=== PATIENT | male | born 1935 ===

== ENCOUNTER 2021-06-04 16:25 | Inpatient (IN) | payer MEDICARE, OTHER ==
--- NOTE | 2021-06-05 07:45 | History and Physical Report ---
GP History & Physical - History of Present Illness Date of admission: 06/05/21 Date of Examination: 06/05/21 Chief Complaint: Suicidal/homicidal ideation/ command hallucinations. History of Present Illness: The patient is an 86 year old male with history of Dementia who was admitted from [facility] on 1012 for suicidal and homicidal ideation. The patient is seen this morning, he is calm, confused and unable to participate in the assessm ent process. When asking the the patient why he was admitted , he states " I thought I'm coming here to get a test for my stomach and go back home." PAST PSYCHIATRIC HISTORY: Unable to obtain PAST MEDICAL HISTORY: None reported or document Family Psychiatric History: None reported or documented SOCIAL HISTORY Unable to obtain REVIEW OF SYSTEMS Unable to obtain MENTAL STATUS EXAMINATION Unable to obtain Assessment and Plan (1) Dementia w/Behavioral Disturbances Treatment Plan Patient admitted for inpatient psychiatric evaluation, medication adjustment and close monitoring The patient's behavior, mood, sleep and appetite will be closely monitored. Patient enrolled in individual and group therapeutic sessions and encouraged to attend. Patient provided with a safe and structured environment. Patient's physical health needs will be addressed by the Hospitalist. Hospitalist Consulted Labs including CBC, CMP, Lipid profile and Hemoglobin A1C levels ordered for baseline reference Social Assessment will be completed and the Treasury Specialist will work with patient and family to ensure a suitable and safe disposition Medication adjustment will be made as clinically indicated Restarted home medications Usual Wellness Yarsanism/Preservation: - Start Trazodone 50 mg po QHS & 50 mg po QHS PRN between 10 PM & 2 AM for insomnia - Start Melatonin 5 mg po QHS to promote circadian rhythm The patient agreed on the treatment plan, understood the risk, benefit, alternative treatment, potential consequence of no treatment, and gave informed consent. Estimated days: 7 Post hospital care: primary care provider, psychiatric provider Case staffed with Dr. Ruiz Legal Status: Voluntary Reaction to Hospitalization: Accepting Medications and Allergies Results - Results Labs/Vitals: Laboratory Last Values POC Glucose 133 mg/dL (70-105) H 06/05/21 07:11 Last Vital Signs Temp 97.5 F L 06/05/21 03:07 Pulse 77 06/05/21 03:07 Resp 17 06/05/21 03:07 BP 186/66 06/05/21 03:07 Pulse Ox 95 06/05/21 03:07 Physical Examination - Constitutional Vitals: Vital Signs Temp Pulse Resp BP Pulse Ox 97.5 F L 77 17 186/66 95 06/05/21 03:07 06/05/21 03:07 06/05/21 03:07 06/05/21 03:07 06/05/21 03:07 Temperature -Last 24 Hours Temperature 97.5 F Mental Status Exam - Vital signs Last Vital Signs Temp 97.5 F L 06/05/21 03:07 Pulse 77 06/05/21 03:07 Resp 17 06/05/21 03:07 BP 186/66 06/05/21 03:07 Pulse Ox 95 06/05/21 03:07 Physician Certification - Certification Statement Physician Certification Statement: This is an acknowledgement statement that GLORY MARTIN is a 86 year old M who requires inpatient psychiatric admission for treatment which could reasonably be expected to improve the patient's condition for Estimated period of time patient will need to remain in the hospital: [ ] Plan for post-hospital care: [ ]
[2021-06-05 08:48] LABS: Basophils % (Auto) 0.4 % (0.0-1.8); Eosinophils # (Auto) 0.1 K/mm3 (0.0-0.4); Hematocrit 39.4 % (35.5-45.6); Hemoglobin 12.2 gm/dl (11.8-15.2); Lymphocytes # (Auto) 0.5 K/mm3 (1.2-5.4); Lymphocytes % (Auto) 7.3 % (13.4-35.0); Mean Corpuscular HGB Conc 31 % (32-34); Mean Corpuscular Volume 87 fl (84-94); Monocytes # (Auto) 0.6 K/mm3 (0.0-0.8); Monocytes % (Auto) 9.1 % (0.0-7.3); Platelet Count 205 K/mm3 (140-440); Red Blood Count 4.52 M/mm3 (3.65-5.03); Red Cell Distribution Width 14.7 % (13.2-15.2)
[2021-06-05 09:16] LABS: Albumin 3.3 g/dL (3.9-5); Calcium 9.1 mg/dL (8.4-10.2); Chol/HDL Ratio 2.18 %
[2021-06-05 13:32] LABS: Hepatitis C Virus Antibody Non-Reactive (NonReactive)
[2021-06-05 14:26] LABS: Hepatitis B Surface Antigen Nonreactive (Negative)
--- NOTE | 2021-06-05 20:56 | Consultation ---
History of Present Illness - Reason for Consult Consult date: 06/05/21 Medical management Requesting physician: JACQUE CUBA - History of Present Illness The patient is an 86 year old male with history of Dementia who was admitted from [facility] on 1012 for suicidal and homicidal ideation. The patient is seen this morning, he is calm, confused and unable to participate in the assessment process. When asking the the patient why he was admitted , he states " I thought I'm coming here to get a test for my stomach and go back home." PAST PSYCHIATRIC HISTORY: Unable to obtain PAST MEDICAL HISTORY: T2DM Family Psychiatric History: None reported or documented SOCIAL HISTORY Unable to obtain REVIEW OF SYSTEMS Unable to obtain MENTAL STATUS EXAMINATION Unable to obtain Medications and Allergies Allergies Allergy/AdvReac Type Severity Reaction Status Date / Time No Known Allergies Allergy Verified 06/05/21 16:47 Exam - Constitutional Vitals: Temp Pulse Resp BP Pulse Ox 97.5 F L 77 17 186/66 95 06/05/21 03:07 06/05/21 03:07 06/05/21 03:07 06/05/21 03:07 06/05/21 03:07 General appearance: Present: no acute distress, well-nourished - EENT Eyes: Present: PERRL ENT: hearing intact, clear oral mucosa - Neck Neck: Present: supple, normal ROM - Respiratory Respiratory effort: normal Respiratory: bilateral: CTA - Cardiovascular Heart rate: 70 Rhythm: regular Heart Sounds: Present: S1 & S2. Absent: rub, click - Extremities Extremities: pulses symmetrical, No edema Peripheral Pulses: within normal limits - Abdominal General gastrointestinal: Present: soft, non-tender, non-distended, normal bowel sounds Male genitourinary: Present: normal - Integumentary Integumentary: Present: clear, warm, dry - Musculoskeletal Musculoskeletal: gait normal, strength equal bilaterally - Psychiatric Psychiatric: appropriate mood/affect, intact judgment & insight - Neurologic Neurologic: CNII-XII intact, moves all extremities - Allied Health Allied health notes reviewed: nursing, case management Results - Labs CBC & Chem 7: 06/05/21 08:31 06/05/21 08:31 Labs: Abnormal lab results 06/05/21 06/05/21 06/05/21 Range/Units 06:28 07:11 08:31 MCH 27 L (28-32) pg MCHC 31 L (32-34) % Lymph % (Auto) 7.3 L (13.4-35.0) % [place]y % (Auto) 9.1 H (0.0-7.3) % Lymph # (Auto) 0.5 L (1.2-5.4) K/mm3 Seg Neutrophils % 82.2 H (40.0-70.0) % Glucose (75-100) mg/dL POC Glucose 67 L 133 H (70-105) mg/dL Albumin (3.9-5) g/dL LDL Cholesterol Direct (50-130) mg/dL 06/05/21 06/05/21 Range/Units 08:31 11:46 MCH (28-32) pg MCHC (32-34) % Lymph % (Auto) (13.4-35.0) % [place]y % (Auto) (0.0-7.3) % Lymph # (Auto) (1.2-5.4) K/mm3 Seg Neutrophils % (40.0-70.0) % Glucose 154 H (75-100) mg/dL POC Glucose 115 H (70-105) mg/dL Albumin 3.3 L (3.9-5) g/dL LDL Cholesterol Direct 32 L (50-130) mg/dL Short CBC 06/05/21 Range/Units 08:31 WBC 6.8 (4.5-11.0) K/mm3 Hgb 12.2 (11.8-15.2) gm/dl Hct 39.4 (35.5-45.6) % Plt Count 205 (140-440) K/mm3 BMP 06/05/21 08:31 Sodium 142 Potassium 3.7 Chloride 100.7 Carbon Dioxide 27 BUN 16 Creatinine 1.2 Glucose 154 H Calcium 9.1 Liver Function 06/05/21 Range/Units 08:31 Total Bilirubin 0.70 (0.1-1.2) mg/dL AST 17 (5-40) units/L ALT 11 (7-56) units/L Alkaline Phosphatase 55 (35-129) units/L Albumin 3.3 L (3.9-5) g/dL Assessment and Plan - Patient Problems (1) T2DM (type 2 diabetes mellitus) Current Visit: Yes Status: Acute Plan to address problem: [place] Ac/HS Check A1c (2) DVT prophylaxis Current Visit: Yes Status: Acute Plan to address problem: On heparin and GI prophylaxis
[2021-06-05] MEDS: INSULIN LISPRO 100 UNIT/ML SUB-Q SCH (22:18)
--- NOTE | 2021-06-06 07:47 | Progress Note ---
Subjective Date of service: 06/06/21 Subjective Comment: 06/06/21: The patient was seen in the activity room today, he reports not doing well " I got stomach pain." He continues to be confused, endorsing auditory hallucination but not sure what the voices are saying. He denies any current suicidal/homicidal ideation. PAST PSYCHIATRIC HISTORY: Unable to obtain PAST MEDICAL HISTORY: None reported or document Family Psychiatric History: None reported or documented SOCIAL HISTORY Unable to obtain REVIEW OF SYSTEMS Unable to obtain MENTAL STATUS EXAMINATION Unable to obtain Assessment and Plan (1) Dementia w/Behavioral Disturbances Treatment Plan Patient admitted for inpatient psychiatric evaluation, medication adjustment and close monitoring The patient's behavior, mood, sleep and appetite will be closely monitored. Patient enrolled in individual and group therapeutic sessions and encouraged to attend. Patient provided with a safe and structured environment. Patient's physical health needs will be addressed by the Hospitalist. Hospitalist Consulted Labs including CBC, CMP, Lipid profile and Hemoglobin A1C levels ordered for baseline reference Social Assessment will be completed and the Hydraulic Repairer will work with patient and family to ensure a suitable and safe disposition Medication adjustment will be made as clinically indicated Restarted home medications Usual Wellness Episcopal/Preservation: - Start Trazodone 50 mg po QHS & 50 mg po QHS PRN between 10 PM & 2 AM for insomnia - Start Melatonin 5 mg po QHS to promote circadian rhythm The patient agreed on the treatment plan, understood the risk, benefit, alternative treatment, potential consequence of no treatment, and gave informed consent. Estimated days: 6 Post hospital care: primary care provider, psychiatric provider Case staffed with Dr. Ruiz Legal Status: Voluntary Reaction to Hospitalization: Accepting Medications and Allergies Results Medications and Allergies Allergies Allergy/AdvReac Type Severity Reaction Status Date / Time No Known Allergies Allergy Verified 06/05/21 16:47 Home Medications Medication Instructions Recorded Confirmed Last Taken Type Acetaminophen [Aphen] 325 mg PO Q6HR 06/06/21 06/06/21 Unknown History Aspirin 325 mg PO QDAY 06/06/21 06/06/21 Unknown History Benzonatate [Tessalon Perles] 100 mg PO Q8HR 06/06/21 06/06/21 Unknown History HYDROcodone/APAP 5-325 [[place] 1 each PO Q6HR PRN 06/06/21 06/06/21 Unknown History 5/325] Ipratropium 2.5 mg PO Q6HR 06/06/21 06/06/21 Unknown History Lovastatin [Altoprev] 40 mg PO HS 06/06/21 06/06/21 Unknown History Metoprolol [Lopressor TAB] 50 mg PO BID 06/06/21 06/06/21 Unknown History Mometasone 0.1% (Nf) [Elocon (Nf)] 1 applicatio TP QDAY 06/06/21 06/06/21 Unknown History NIFEdipine [Nifedipine ER] 60 mg PO BID 06/06/21 06/06/21 Unknown History Tylenol Cold-Flu Mult D-N Cplt 1 mg PO TID 06/06/21 06/06/21 Unknown History glipiZIDE [Glucotrol] 5 mg PO BID 06/06/21 06/06/21 Unknown History hydrALAZINE [Apresoline TAB] 100 mg PO TID 06/06/21 06/06/21 Unknown History Active Meds: Active Medications Insulin Human Lispro (Insulin Lispro 100 Unit/Ml) 0 unit SUB-Q [facility]; Protocol Last Admin: 06/05/21 22:18 Dose: Not Given Documented by: Metformin HCl (Metformin Xr 500mg Tab) 500 mg PO QDDIAB JOSTIN Results - Results Labs/Vitals: Laboratory Last Values WBC 6.8 K/mm3 (4.5-11.0) 06/05/21 08:31 RBC 4.52 M/mm3 (3.65-5.03) 06/05/21 08:31 Hgb 12.2 gm/dl (11.8-15.2) 06/05/21 08:31 Hct 39.4 % (35.5-45.6) 06/05/21 08:31 MCV 87 fl (84-94) 06/05/21 08:31 MCH 27 pg (28-32) L 06/05/21 08:31 MCHC 31 % (32-34) L 06/05/21 08:31 RDW 14.7 % (13.2-15.2) 06/05/21 08:31 Plt Count 205 K/mm3 (140-440) 06/05/21 08:31 Lymph % (Auto) 7.3 % (13.4-35.0) L 06/05/21 08:31 Desha % (Auto) 9.1 % (0.0-7.3) H 06/05/21 08:31 Eos % (Auto) 1.0 % (0.0-4.3) 06/05/21 08:31 Baso % (Auto) 0.4 % (0.0-1.8) 06/05/21 08:31 Lymph # (Auto) 0.5 K/mm3 (1.2-5.4) L 06/05/21 08:31 Desha # (Auto) 0.6 K/mm3 (0.0-0.8) 06/05/21 08:31 Eos # (Auto) 0.1 K/mm3 (0.0-0.4) 06/05/21 08:31 Baso # (Auto) 0.0 K/mm3 (0.0-0.1) 06/05/21 08:31 Seg Neutrophils % 82.2 % (40.0-70.0) H 06/05/21 08:31 Seg Neutrophils # 5.6 K/mm3 (1.8-7.7) 06/05/21 08:31 Sodium 142 mmol/L (137-145) 06/05/21 08:31 Potassium 3.7 mmol/L (3.6-5.0) 06/05/21 08:31 Chloride 100.7 mmol/L (98-107) 06/05/21 08:31 Carbon Dioxide 27 mmol/L (22-30) 06/05/21 08:31 Anion Gap 18 mmol/L 06/05/21 08:31 BUN 16 mg/dL (9-20) 06/05/21 08:31 Creatinine 1.2 mg/dL (0.8-1.3) 06/05/21 08:31 Estimated GFR 57 ml/min 06/05/21 08:31 BUN/Creatinine Ratio 13 % 06/05/21 08:31 Glucose 154 mg/dL (75-100) H 06/05/21 08:31 POC Glucose 88 mg/dL (70-105) 06/06/21 05:44 Hemoglobin A1c 5.9 % (4-6) 06/05/21 08:31 Calcium 9.1 mg/dL (8.4-10.2) 06/05/21 08:31 Total Bilirubin 0.70 mg/dL (0.1-1.2) 06/05/21 08:31 AST 17 units/L (5-40) 06/05/21 08:31 ALT 11 units/L (7-56) 06/05/21 08:31 Alkaline Phosphatase 55 units/L (35-129) 06/05/21 08:31 Total Protein 6.9 g/dL (6.3-8.2) 06/05/21 08:31 Albumin 3.3 g/dL (3.9-5) L 06/05/21 08:31 Albumin/Globulin Ratio 0.9 % 06/05/21 08:31 Triglycerides 72 mg/dL (2-149) 06/05/21 08:31 Cholesterol 96 mg/dL (50-199) 06/05/21 08:31 LDL Cholesterol Direct 32 mg/dL (50-130) L 06/05/21 08:31 HDL Cholesterol 44 mg/dL (40-59) 06/05/21 08:31 Cholesterol/HDL Ratio 2.18 % 06/05/21 08:31 TSH 2.960 mlU/mL (0.270-4.200) 06/05/21 08:31 Hepatitis A IgM Ab Non-reactive (NonReactive) 06/05/21 08:31 Hep Bs Antigen Nonreactive (Negative) 06/05/21 08:31 Hep B Core IgM Ab Non-reactive (NonReactive) 06/05/21 08:31 Hepatitis C Antibody Non-reactive (NonReactive) 06/05/21 08:31 Last Vital Signs Temp 97.5 F L 06/05/21 20:00 Pulse 72 06/05/21 20:00 Resp 18 06/05/21 20:00 BP 173/89 06/05/21 20:00 Pulse Ox 98 06/05/21 20:00
[2021-06-06] MEDS ORDERED: metFORMIN XR 500MG TAB PO SCH (08:00)
[2021-06-06] MEDS: INSULIN LISPRO 100 UNIT/ML SUB-Q SCH ×4 (09:06→21:38)
[2021-06-06] MEDS ORDERED: LOSARTAN 25 MG TAB PO ONE (10:59)
[2021-06-06] MEDS ORDERED: NIFEdipine XL 30 MG TAB PO ONE (10:59)
[2021-06-06] MEDS ORDERED: LOSARTAN 25 MG TAB PO SCH (11:00)
[2021-06-06] MEDS ORDERED: NIFEdipine XL 30 MG TAB PO SCH (11:00)
--- NOTE | 2021-06-06 13:52 | Progress Note ---
Assessment and Plan - Patient Problems (1) T2DM (type 2 diabetes mellitus) Current Visit: Yes Status: Acute Plan to address problem: [place] Ac/HS Check A1c (2) HTN (hypertension) Current Visit: Yes Status: Chronic (3) DVT prophylaxis Current Visit: Yes Status: Acute Plan to address problem: On heparin and GI prophylaxis Subjective Date of service: 06/06/21 Objective - Constitutional Vitals: Vital Signs - 12hr 06/06/21 08:03 Temperature 98.7 F Respiratory 20 Rate Blood Pressure 200/89 General appearance: Present: no acute distress, well-nourished - EENT Eyes: PERRL, EOM intact ENT: hearing intact, clear oral mucosa Ears: bilateral: normal - Neck Neck: supple, normal ROM - Respiratory Respiratory effort: normal Respiratory: bilateral: CTA - Breasts Breasts: normal - Cardiovascular Rhythm: regular Heart Sounds: Present: S1 & S2. Absent: gallop, rub Extremities: pulses intact, No edema, normal color, Full ROM - Gastrointestinal General gastrointestinal: Present: soft, non-tender, non-distended, normal bowel sounds - Genitourinary Male genitourinary: normal - Integumentary Integumentary: clear, warm, dry - Musculoskeletal Musculoskeletal: 1, strength equal bilaterally - Neurologic Neurologic: moves all extremities - Psychiatric Psychiatric: memory intact, appropriate mood/affect, intact judgment & insight - Labs CBC & Chem 7: 06/05/21 08:31 06/05/21 08:31 Labs: Abnormal lab results 06/06/21 Range/Units 11:45 POC Glucose 123 H (70-105) mg/dL
[2021-06-06] MEDS ORDERED: ACETAMINOPHEN 325 MG TAB PO PRN (21:30)
[2021-06-06] MEDS: NIFEdipine XL 60 MG TAB PO SCH (21:37)
[2021-06-06] MEDS: METOPROLOL TARTRATE 50 MG TAB PO SCH (21:37)
[2021-06-06] MEDS: glipiZIDE 5 MG TAB PO SCH (21:40)
[2021-06-07] MEDS: POLYETHYLENE GLYCOL 3350 17 GM POWDER PO SCH ×3 (01:11→22:34)
[2021-06-07] MEDS ORDERED: oxyCODONE /ACETAMINOPHEN 5-325MG TAB PO ONE (01:35)
[2021-06-07] MEDS: INSULIN LISPRO 100 UNIT/ML SUB-Q SCH ×4 (08:04→22:37)
--- NOTE | 2021-06-07 09:05 | Progress Note ---
Subjective Date of service: 06/07/21 Subjective Comment: 06/06/21: The patient was seen in the activity room today, he reports not doing well " I got stomach pain." He continues to be confused, endorsing auditory hallucination but not sure what the voices are saying. He denies any current suicidal/homicidal ideation. 06/07/21: The patient is seen in the room, states he is doing "pretty good today." States sleep is poor, and feeling a little depressed. He continues to endorse intermittent suicidal ideation and auditory hallucinations " seeing snakes." PAST PSYCHIATRIC HISTORY: Unable to obtain PAST MEDICAL HISTORY: None reported or document Family Psychiatric History: None reported or documented SOCIAL HISTORY Unable to obtain REVIEW OF SYSTEMS Unable to obtain MENTAL STATUS EXAMINATION Unable to obtain Assessment and Plan (1) Dementia w/Behavioral Disturbances Treatment Plan Patient admitted for inpatient psychiatric evaluation, medication adjustment and close monitoring The patient's behavior, mood, sleep and appetite will be closely monitored. Patient enrolled in individual and group therapeutic sessions and encouraged to attend. Patient provided with a safe and structured environment. Patient's physical health needs will be addressed by the Hospitalist. Hospitalist Consulted Labs including CBC, CMP, Lipid profile and Hemoglobin A1C levels ordered for baseline reference Social Assessment will be completed and the Game Operator will work with patient and family to ensure a suitable and safe disposition Medication adjustment will be made as clinically indicated Restarted home medications Start Effexor 37.5mg po daily Start Depakote DR 125mg po BID Start Zyprexa 5mg po QHS Usual Wellness Orthodox/Preservation: - Start Trazodone 50 mg po QHS & 50 mg po QHS PRN between 10 PM & 2 AM for insomnia - Start Melatonin 5 mg po QHS to promote circadian rhythm The patient agreed on the treatment plan, understood the risk, benefit, alternative treatment, potential consequence of no treatment, and gave informed consent. Estimated days: 5 Post hospital care: primary care provider, psychiatric provider Case staffed with Dr. Ruiz Legal Status: Voluntary Reaction to Hospitalization: Accepting Medications and Allergies Results Medications and Allergies Medications and Allergies Allergies Allergy/AdvReac Type Severity Reaction Status Date / Time No Known Allergies Allergy Verified 06/05/21 16:47 Home Medications Medication Instructions Recorded Confirmed Last Taken Type Acetaminophen [Aphen] 325 mg PO Q6HR 06/06/21 06/06/21 Unknown History Aspirin 325 mg PO QDAY 06/06/21 06/06/21 Unknown History Benzonatate [Tessalon Perles] 100 mg PO Q8HR 06/06/21 06/06/21 Unknown History HYDROcodone/APAP 5-325 [[place] 1 each PO Q6HR PRN 06/06/21 06/06/21 Unknown History 5/325] Ipratropium 2.5 mg PO Q6HR 06/06/21 06/06/21 Unknown History Lovastatin [Altoprev] 40 mg PO HS 06/06/21 06/06/21 Unknown History Metoprolol [Lopressor TAB] 50 mg PO BID 06/06/21 06/06/21 Unknown History Mometasone 0.1% (Nf) [Elocon (Nf)] 1 applicatio TP QDAY 06/06/21 06/06/21 Unknown History NIFEdipine [Nifedipine ER] 60 mg PO BID 06/06/21 06/06/21 Unknown History Tylenol Cold-Flu Mult D-N Cplt 1 mg PO TID 06/06/21 06/06/21 Unknown History glipiZIDE [Glucotrol] 5 mg PO BID 06/06/21 06/06/21 Unknown History hydrALAZINE [Apresoline TAB] 100 mg PO TID 06/06/21 06/06/21 Unknown History polyethylene glycoL 3350 [Miralax 17 gm PO BID 06/07/21 06/07/21 Unknown History 3350] Active Meds: Active Medications Acetaminophen (Acetaminophen 325 Mg Tab) 325 mg PO Q6H PRN PRN Reason: Pain, Mild (1-3) Last Admin: 06/06/21 21:37 Dose: 325 mg Documented by: Glipizide (Glipizide 5 Mg Tab) 5 mg PO BID REPLACED BY [facility] Last Admin: 06/06/21 21:40 Dose: Not Given Documented by: Hydralazine HCl (Hydralazine 100 Mg Tab) 100 mg PO TID REPLACED BY [facility] Insulin Human Lispro (Insulin Lispro 100 Unit/Ml) 0 unit SUB-Q ACHS REPLACED BY [facility]; Protocol Last Admin: 06/07/21 08:04 Dose: Not Given Documented by: Metoprolol Tartrate (Metoprolol Tartrate 50 Mg Tab) 50 mg PO BID REPLACED BY [facility] Last Admin: 06/06/21 21:37 Dose: 50 mg Documented by: Nifedipine (Nifedipine Xl 60 Mg Tab) 60 mg PO BID REPLACED BY [facility] Last Admin: 06/06/21 21:37 Dose: 60 mg Documented by: Polyethylene Glycol (Polyethylene Glycol 3350 17 Gm Powder) 17 gm PO BID REPLACED BY [facility] Last Admin: 06/07/21 01:11 Dose: 17 gm Documented by: Results - Results Labs/Vitals: Laboratory Last Values WBC 6.8 K/mm3 (4.5-11.0) 06/05/21 08:31 RBC 4.52 M/mm3 (3.65-5.03) 06/05/21 08:31 Hgb 12.2 gm/dl (11.8-15.2) 06/05/21 08:31 Hct 39.4 % (35.5-45.6) 06/05/21 08:31 MCV 87 fl (84-94) 06/05/21 08:31 MCH 27 pg (28-32) L 06/05/21 08:31 MCHC 31 % (32-34) L 06/05/21 08:31 RDW 14.7 % (13.2-15.2) 06/05/21 08:31 Plt Count 205 K/mm3 (140-440) 06/05/21 08:31 Lymph % (Auto) 7.3 % (13.4-35.0) L 06/05/21 08:31 [place] % (Auto) 9.1 % (0.0-7.3) H 06/05/21 08:31 Eos % (Auto) 1.0 % (0.0-4.3) 06/05/21 08:31 Baso % (Auto) 0.4 % (0.0-1.8) 06/05/21 08:31 Lymph # (Auto) 0.5 K/mm3 (1.2-5.4) L 06/05/21 08:31 [place] # (Auto) 0.6 K/mm3 (0.0-0.8) 06/05/21 08:31 Eos # (Auto) 0.1 K/mm3 (0.0-0.4) 06/05/21 08:31 Baso # (Auto) 0.0 K/mm3 (0.0-0.1) 06/05/21 08:31 Seg Neutrophils % 82.2 % (40.0-70.0) H 06/05/21 08:31 Seg Neutrophils # 5.6 K/mm3 (1.8-7.7) 06/05/21 08:31 Sodium 142 mmol/L (137-145) 06/05/21 08:31 Potassium 3.7 mmol/L (3.6-5.0) 06/05/21 08:31 Chloride 100.7 mmol/L (98-107) 06/05/21 08:31 Carbon Dioxide 27 mmol/L (22-30) 06/05/21 08:31 Anion Gap 18 mmol/L 06/05/21 08:31 BUN 16 mg/dL (9-20) 06/05/21 08:31 Creatinine 1.2 mg/dL (0.8-1.3) 06/05/21 08:31 Estimated GFR 57 ml/min 06/05/21 08:31 BUN/Creatinine Ratio 13 % 06/05/21 08:31 Glucose 154 mg/dL (75-100) H 06/05/21 08:31 POC Glucose 132 mg/dL (70-105) H 06/07/21 06:11 Hemoglobin A1c 5.9 % (4-6) 06/05/21 08:31 Calcium 9.1 mg/dL (8.4-10.2) 06/05/21 08:31 Total Bilirubin 0.70 mg/dL (0.1-1.2) 06/05/21 08:31 AST 17 units/L (5-40) 06/05/21 08:31 ALT 11 units/L (7-56) 06/05/21 08:31 Alkaline Phosphatase 55 units/L (35-129) 06/05/21 08:31 Total Protein 6.9 g/dL (6.3-8.2) 06/05/21 08:31 Albumin 3.3 g/dL (3.9-5) L 06/05/21 08:31 Albumin/Globulin Ratio 0.9 % 06/05/21 08:31 Triglycerides 72 mg/dL (2-149) 06/05/21 08:31 Cholesterol 96 mg/dL (50-199) 06/05/21 08:31 LDL Cholesterol Direct 32 mg/dL (50-130) L 06/05/21 08:31 HDL Cholesterol 44 mg/dL (40-59) 06/05/21 08:31 Cholesterol/HDL Ratio 2.18 % 06/05/21 08:31 TSH 2.960 mlU/mL (0.270-4.200) 06/05/21 08:31 Hepatitis A IgM Ab Non-reactive (NonReactive) 06/05/21 08:31 Hep Bs Antigen Nonreactive (Negative) 06/05/21 08:31 Hep B Core IgM Ab Non-reactive (NonReactive) 06/05/21 08:31 Hepatitis C Antibody Non-reactive (NonReactive) 06/05/21 08:31 Last Vital Signs Temp 98.6 F 06/06/21 20:04 Pulse 65 06/06/21 21:37 Resp 18 06/07/21 01:29 BP 161/85 06/06/21 21:37 Pulse Ox 100 06/06/21 20:04
[2021-06-07] MEDS: glipiZIDE 5 MG TAB PO SCH ×2 (09:59→22:32)
[2021-06-07] MEDS: VENLAFAXINE 37.5 MG TAB PO SCH (09:59)
[2021-06-07] MEDS: hydrALAZINE 100 MG TAB PO SCH ×3 (09:59→22:31)
[2021-06-07] MEDS: NIFEdipine XL 60 MG TAB PO SCH ×2 (09:59→22:34)
[2021-06-07] MEDS: METOPROLOL TARTRATE 50 MG TAB PO SCH ×2 (09:59→22:33)
[2021-06-07] MEDS: DIVALPROEX DR 125 MG TAB PO SCH ×2 (09:59→22:31)
[2021-06-08] MEDS: INSULIN LISPRO 100 UNIT/ML SUB-Q SCH ×4 (07:35→21:44)
[2021-06-08] MEDS: hydrALAZINE 100 MG TAB PO SCH ×3 (09:55→20:50)
[2021-06-08] MEDS: POLYETHYLENE GLYCOL 3350 17 GM POWDER PO SCH ×2 (09:55→21:37)
[2021-06-08] MEDS: VENLAFAXINE 37.5 MG TAB PO SCH (09:55)
[2021-06-08] MEDS: NIFEdipine XL 60 MG TAB PO SCH ×2 (09:55→21:38)
[2021-06-08] MEDS: glipiZIDE 5 MG TAB PO SCH ×2 (09:55→21:44)
[2021-06-08] MEDS: DIVALPROEX DR 125 MG TAB PO SCH ×2 (09:55→21:49)
[2021-06-08] MEDS: METOPROLOL TARTRATE 50 MG TAB PO SCH ×2 (09:56→21:45)
--- NOTE | 2021-06-08 11:26 | Discharge Summary ---
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 The patient's mood, cognition, behavior, moral support are improved and stabilized. St the time of discharge, the patient had no endangering behavior and no debilitating adverse effects. The patient agreed on potential consequences of no treatment and gave informed consent. Disposition: HOME / SELF CARE / HOMELESS Time spent for discharge: 35 Allergies/Adverse Reactions: Allergies No Known Allergies Allergy (Verified 06/05/21 16:47) Vital Signs: Last Vital Signs Temp 97.5 F L 06/07/21 20:04 Pulse 74 06/08/21 09:56 Resp 17 06/07/21 20:04 BP 120/55 06/08/21 09:56 Pulse Ox 97 06/07/21 20:04 Last Lab: Laboratory Last Values WBC 6.8 K/mm3 (4.5-11.0) 06/05/21 08:31 RBC 4.52 M/mm3 (3.65-5.03) 06/05/21 08:31 Hgb 12.2 gm/dl (11.8-15.2) 06/05/21 08:31 Hct 39.4 % (35.5-45.6) 06/05/21 08:31 MCV 87 fl (84-94) 06/05/21 08:31 MCH 27 pg (28-32) L 06/05/21 08:31 MCHC 31 % (32-34) L 06/05/21 08:31 RDW 14.7 % (13.2-15.2) 06/05/21 08:31 Plt Count 205 K/mm3 (140-440) 06/05/21 08:31 Lymph % (Auto) 7.3 % (13.4-35.0) L 06/05/21 08:31 [place] % (Auto) 9.1 % (0.0-7.3) H 06/05/21 08:31 Eos % (Auto) 1.0 % (0.0-4.3) 06/05/21 08:31 Baso % (Auto) 0.4 % (0.0-1.8) 06/05/21 08:31 Lymph # (Auto) 0.5 K/mm3 (1.2-5.4) L 06/05/21 08:31 [place] # (Auto) 0.6 K/mm3 (0.0-0.8) 06/05/21 08:31 Eos # (Auto) 0.1 K/mm3 (0.0-0.4) 06/05/21 08:31 Baso # (Auto) 0.0 K/mm3 (0.0-0.1) 06/05/21 08:31 Seg Neutrophils % 82.2 % (40.0-70.0) H 06/05/21 08:31 Seg Neutrophils # 5.6 K/mm3 (1.8-7.7) 06/05/21 08:31 Sodium 142 mmol/L (137-145) 06/05/21 08:31 Potassium 3.7 mmol/L (3.6-5.0) 06/05/21 08:31 Chloride 100.7 mmol/L (98-107) 06/05/21 08:31 Carbon Dioxide 27 mmol/L (22-30) 06/05/21 08:31 Anion Gap 18 mmol/L 06/05/21 08:31 BUN 16 mg/dL (9-20) 06/05/21 08:31 Creatinine 1.2 mg/dL (0.8-1.3) 06/05/21 08:31 Estimated GFR 57 ml/min 06/05/21 08:31 BUN/Creatinine Ratio 13 % 06/05/21 08:31 Glucose 154 mg/dL (75-100) H 06/05/21 08:31 POC Glucose 164 mg/dL (70-105) H 06/08/21 08:33 Hemoglobin A1c 5.9 % (4-6) 06/05/21 08:31 Calcium 9.1 mg/dL (8.4-10.2) 06/05/21 08:31 Total Bilirubin 0.70 mg/dL (0.1-1.2) 06/05/21 08:31 AST 17 units/L (5-40) 06/05/21 08:31 ALT 11 units/L (7-56) 06/05/21 08:31 Alkaline Phosphatase 55 units/L (35-129) 06/05/21 08:31 Total Protein 6.9 g/dL (6.3-8.2) 06/05/21 08:31 Albumin 3.3 g/dL (3.9-5) L 06/05/21 08:31 Albumin/Globulin Ratio 0.9 % 06/05/21 08:31 Triglycerides 72 mg/dL (2-149) 06/05/21 08:31 Cholesterol 96 mg/dL (50-199) 06/05/21 08:31 LDL Cholesterol Direct 32 mg/dL (50-130) L 06/05/21 08:31 HDL Cholesterol 44 mg/dL (40-59) 06/05/21 08:31 Cholesterol/HDL Ratio 2.18 % 06/05/21 08:31 TSH 2.960 mlU/mL (0.270-4.200) 06/05/21 08:31 Hepatitis A IgM Ab Non-reactive (NonReactive) 06/05/21 08:31 Hep Bs Antigen Nonreactive (Negative) 06/05/21 08:31 Hep B Core IgM Ab Non-reactive (NonReactive) 06/05/21 08:31 Hepatitis C Antibody Non-reactive (NonReactive) 06/05/21 08:31 Core Measure Documentation - Palliative Care Palliative Care/ Comfort Measures: Not Applicable - Core Measures Any of the following diagnoses?: none Exam - Constitutional Vitals: Temp Pulse Resp BP Pulse Ox 97.5 F L 74 17 120/55 97 06/07/21 20:04 06/08/21 09:56 06/07/21 20:04 06/08/21 09:56 06/07/21 20:04 General appearance: Present: no acute distress - EENT Eyes: Present: PERRL, EOM intact ENT: hearing intact, clear oral mucosa - Neck Neck: Present: supple, normal ROM - Respiratory Respiratory effort: normal Plan Activity: advance as tolerated Weight Bearing Status: Weight Bear as Tolerated Care Plan Goals: maintain good and stable mental health Plan of Treatment: The patient should be compliant with medications, not to use drugs, and not to drink alcohol. The patient understands that if suicidal ideas, homicidal ideas or any endangering feeling arise, the patient should seek assistance including, but not limited to crisis hotline, and emergency room. Assessment: Dementia with behavior disturbance Follow up with: PRIMARY CARE, [Primary Care Provider] - 7 Days Prescriptions: OLANzapine [ZyPREXA] 5 mg PO QHS #[address] [Depakote Dr] 125 mg PO BID #60 tablet Venlafaxine [Effexor 37.5mg tab] 37.5 mg PO DAILY #30 tablet
[2021-06-08 21:46] VITALS: BP 127/64
== END 2021-06-09 00:35 | disposition home or self-care (01) | DRG 884 ==
LOC: UNDOADMIN 16:25 → 3A 16:25 → 5A 06-05 02:23
PROVIDERS: ADMIT Psychiatry & Neurology Psychiatry; ATTEND Psychiatry & Neurology Psychiatry
DX: F03.91 Unspecified dementia, unspecified severity, with behavioral disturbance (principal); R45.851 Suicidal ideations; E11.9 Type 2 diabetes mellitus without complications; I10 Essential (primary) hypertension
CPT/HCPCS: 36415; 80053; 80061; 80074; 82962; 83036; 84443; 85025; G0378